=== PATIENT | male | born 1965 | race Caucasian/White ===

== ENCOUNTER 2018-01-31 18:16 | Emergency (ER) | payer OTHER ==
[~2018-01-31] VITALS: Ht 177.8 cm; Wt 88.5 kg
[2018-01-31] MEDS ORDERED: KEFLEX500 M1 PO (19:17)
[2018-01-31 19:24] VITALS: BP 132/78
== END 2018-01-31 19:25 | disposition home or self-care (01) ==
LOC: M.ERS 18:16
DX: S61.210A Laceration without foreign body of right index finger without damage to nail, initial encounter (principal); W26.8XXA Contact with other sharp object(s), not elsewhere classified, initial encounter; Y93.89 Activity, other specified; Y92.89 Other specified places as the place of occurrence of the external cause; Y99.8 Other external cause status

== ENCOUNTER 2021-10-25 20:56 | Emergency (ER) | payer OTHER ==
[~2021-10-25] VITALS: Ht 177.8 cm; Wt 81.7 kg
[~2021-10-25 20:56] MED LIST: KEFLEX500 M1 PO
[2021-10-25] MEDS ORDERED: TOPROL XL25 MG PO (21:03)
[2021-10-25] MEDS ORDERED: CRESTOR40 MG PO (21:04)
[2021-10-25] MEDS ORDERED: ASPIRIN EC81 M1 PO (21:04)
[2021-10-25] MEDS ORDERED: EFFIENT10 MG PO (21:05)
[2021-10-25 21:29] LABS: ABSOLUTE LYMPHOCYTES 0.8 thou/uL (0.8-5.3); ABSOLUTE MONOCYTES 0.4 thou/uL (0.0-1.2); ABSOLUTE NEUTROPHILS 6.3 thou/uL (1.6-8.1); BASOPHILS 0.3 %; EOSINOPHILS 0.3 %; HEMATOCRIT 44.2 % (42.0-52.0); HEMOGLOBIN 15.2 gm/dL (14.0-18.0); LYMPHOCYTES 10.3 %; MCH 29.8 pg (26.0-34.0); MCHC 34.5 g/dL (28.0-37.0); MCV 86.5 fL (80.0-100.0); MONOCYTES 4.8 %; MPV 7.4 fl. (7.2-11.1); NUCLEATED RBCS 0 /100WBC; PLATELET COUNT* 164 thou/uL (150-400); POLYS 84.3 %; RBC 5.11 mil/uL (4.50-6.00); WBC 7.5 thou/uL (4.0-11.0)
[2021-10-25 21:37] LABS: CALCIUM 8.7 mg/dL (8.5-10.1); CREATININE 1.2 mg/dL (0.6-1.3); POTASSIUM 4.4 mmol/L (3.5-5.1)
[2021-10-25 21:40] LABS: PROTIME 10.3 Seconds (9.20-11.50)
[2021-10-25 21:48] LABS: ALBUMIN 3.7 g/dL (3.4-5.0); TOTAL BILIRUBIN 0.6 mg/dL (<0.1-1.0); TOTAL PROTEIN 6.6 g/dL (6.4-8.2)
[2021-10-25 21:59] LABS: MAGNESIUM 2.4 mg/dL (1.8-2.4)
[2021-10-26 01:00] VITALS: BP 118/79
--- NOTE | 2021-10-26 10:34 | EKG ---
[place] [address] ELECTROCARDIOGRAM REPORT Name: CAROLYN WARD [facility] [id number] Admission: 10/25/21 Attend Phys: Discharge: 10/26/21 Date of : 69 Date of Service: 10/25/212058 Report #: [id number] THIS REPORT FOR: //name// [facility] ED Test Date: 2021-10-25 Test Time: 20:59:24 Pat Name: CAROLYN WARD Department: Room: Gender: Associate Dean: : [id number] Requested By: Julisa Stinson Order Number: [id number] MD: Riley Merino Measurements Intervals [place] Rate: 78 P: 81 OK: 191 QRS: 23 QRSD: 81 T: 17 QT: 381 QTc: 434 Interpretive Statements Sinus rhythm Probable left atrial enlargement No previous ECG available for comparison Electronically Signed On 10-26-2021 10:34:20 PLC TECHNICIAN by Riley Merino [email or web address] <ELECTRONICALLY SIGNED> By: Riley Merino MD, [facility] 10/26/21 1034 [id number] 58 Riley Merino MD, FACC /EPI
== END 2021-10-26 01:00 | disposition home or self-care (01) ==
LOC: M.ERS 20:56
PROVIDERS: Emergency Medicine
DX: R07.89 Other chest pain (principal); I25.10 Atherosclerotic heart disease of native coronary artery without angina pectoris; Z79.82 Long term (current) use of aspirin; Z79.899 Other long term (current) drug therapy